=== PATIENT | male | born 2000 | race Hispanic/Latino ===

== ENCOUNTER 2020-06-12 05:24 | Emergency (ER) | payer MEDICAID, OTHER | END 2020-06-12 07:00 | LOC: EDH 05:24 | DX: B34.9 Viral infection, unspecified (principal); Z20.822 Contact with and (suspected) exposure to COVID-19; Z72.0 Tobacco use | CPT/HCPCS: 87426; 87804 ×2; 87880; 93005; 99284; U0003 ==

== ENCOUNTER 2021-11-15 17:47 | Emergency (ER) | payer OTHER ==
[~2021-11-15] VITALS: Ht 162.6 cm; Wt 81.6 kg
[2021-11-15 17:49] VITALS: BP 143/55
[2021-11-15] MEDS ORDERED: KETOROLAC 30MG VIAL (30MG/ML) IVP ONE (18:00)
[2021-11-15] MEDS ORDERED: ONDANSETRON 4MG INJ IVP ONE (18:00)
[2021-11-15 18:20] LABS: APPEARANCE,URINE Clear (CLEAR); BILIRUBIN,URINE Negative (NEGATIVE); COLOR,URINE Yellow (YELLOW); GLUCOSE, URINE (UA) Negative (NEGATIVE); KETONES,URINE Negative (NEGATIVE); LEUKOCYTE ESTERASE ,URINE Negative (NEGATIVE); NITRATE,URINE Negative (NEGATIVE); OCCULT BLOOD,URINE Negative (NEGATIVE); PH,URINE 5.5 (5.0-8.0); PROTEIN,URINE Negative (NEGATIVE); UROBILINOGEN,URINE 0.2 mg/dL (0.2-1.0)
[2021-11-15 18:38] LABS: BASOPHILS % (AUTO) 0.2 % (0.0-5.0); EOSINOPHILS % (AUTO) 0.9 % (0.0-8.0); HEMATOCRIT 41.3 % (42-54); MEAN CORPUSCULAR HEMOGLOBIN 29.5 pg (27.0-33.0); MEAN CORPUSCULAR HGB CONC 34.4 g/dL (32.0-36.0); MEAN CORPUSCULAR VOLUME 85.9 fL (80-100); MONOCYTES % (AUTO) 7.4 % (3.0-13.0); NEUTROPHILS % (AUTO) 86.8 % (40.0-77.0); PLATELET COUNT (AUTO) 177 K/uL (130-400); RED BLOOD CELL COUNT(AUTO) 4.81 MIL/uL (4.50-6.20); RED CELL DISTRIBUTION WIDTH 12.1 % (11.0-15.5); WHITE BLOOD COUNT (AUTO) 8.2 K/uL (4.8-10.8)
[2021-11-15 18:55] LABS: ALANINE AMINOTRANSFERASE 33 U/L (12-78); ALBUMIN 4.5 g/dL (3.5-5.0); ASPARTATE AMINOTRANSFERASE 19 U/L (10-37); CARBON DIOXIDE 28 mmol/L (21-32); CHLORIDE 99 mmol/L (101-111); CREATININE 0.9 mg/dL (0.5-1.5); GLOMERULAR FILTR. RATE CALC 113 mL/min (>60); GLUCOSE,RANDOM 104 mg/dL (70-105); POTASSIUM 3.9 mmol/L (3.5-5.1); SODIUM SERUM 137 mmol/L (136-145); TOTAL PROTEIN, SERUM 7.8 g/dL (6.0-8.3); UREA NITROGEN, BLOOD 13 mg/dL (7-18)
[2021-11-15 19:11] LABS: CRP QUANTITATIVE < 2.00 mg/L (0.00-9.0)
[2021-11-15] MEDS ORDERED: IBUP-2070 PO (19:14)
== END 2021-11-15 19:34 | disposition home or self-care (01) ==
LOC: EDH 17:47
DX: K40.90 Unilateral inguinal hernia, without obstruction or gangrene, not specified as recurrent (principal)
CPT/HCPCS: 99284; 74176; 96374; 96375; 80053; 85025; 87797; 87486; 86140; 81003; 36415; J2405; J1885

== ENCOUNTER 2023-07-16 18:53 | Emergency (ER) | payer OTHER ==
[~2023-07-16] VITALS: Ht 172.7 cm; Wt 77.1 kg
[~2023-07-16 18:53] MED LIST: IBUP-2070 PO
[2023-07-16 18:57] VITALS: BP 150/84; PULSE 80; RESP 16
[2023-07-16 19:25] LABS: BASOPHILS # (AUTO) 0.04 K/uL (0.00-0.20); BASOPHILS % (AUTO) 0.5 % (0.0-5.0); EOSINOPHILS # (AUTO) 0.29 K/uL (0.00-0.70); EOSINOPHILS % (AUTO) 3.7 % (0.0-8.0); HEMATOCRIT 45.8 % (42-54); IMMATURE GRANULOCYTE ABSOLUTE 0.02 K/uL (0-1); LYMPHOCYTES % (AUTO) 26.3 % (21.0-51.0); MEAN CORPUSCULAR HGB CONC 33.6 g/dL (32.0-36.0); MEAN CORPUSCULAR VOLUME 89.3 fL (79-99); MONOCYTES # (AUTO) 0.6 K/uL (0.1-1.0); MONOCYTES % (AUTO) 7.5 % (3.0-13.0); NEUTROPHILS # (AUTO) 4.8 K/uL (1.8-7.7); NEUTROPHILS % (AUTO) 61.7 % (40.0-77.0); PLATELET COUNT (AUTO) 232 K/uL (130-400); RED BLOOD CELL COUNT(AUTO) 5.13 MIL/uL (4.50-6.20); RED CELL DISTRIBUTION WIDTH 12.5 % (11.0-15.5); WHITE BLOOD COUNT (AUTO) 7.8 K/uL (4.8-10.8)
[2023-07-16 19:29] LABS: APPEARANCE,URINE CLEAR (CLEAR); BILIRUBIN,URINE NEGATIVE (NEGATIVE); COLOR,URINE LIGHT-YELLOW (YELLOW); GLUCOSE, URINE (UA) NEGATIVE (NEGATIVE); KETONES,URINE NEGATIVE (NEGATIVE); LEUKOCYTE ESTERASE ,URINE NEGATIVE Leu/uL (NEGATIVE); NITRATE,URINE NEGATIVE (NEGATIVE); OCCULT BLOOD,URINE NEGATIVE (NEGATIVE); PROTEIN,URINE NEGATIVE (NEGATIVE); UROBILINOGEN,URINE 0.2 mg/dL (0.2-1.0)
[2023-07-16] MEDS: ONDANSETRON ODT 4MG TAB SL ONE (19:29)
[2023-07-16] MEDS: ONDANSETRON ODT 4MG TAB ONE (19:29)
[2023-07-16 19:32] LABS: ADD UA MICROSCOPIC YES
[2023-07-16 19:34] LABS: MUCUS,URINE RARE LPF (None Seen); WBC,URINE 0-1 /HPF (0-1); YEAST,URINE BUDDING RARE /HPF (None Seen)
[2023-07-16 19:36] LABS: POTASSIUM 4.1 mmol/L (3.5-5.1)
[2023-07-16 19:47] LABS: BILIRUBIN,TOTAL 0.3 mg/dL (0.2-1.0); TOTAL PROTEIN, SERUM 7.5 g/dL (6.0-8.3)
[2023-07-16 20:41] LABS: INFLUENZA TYPE A Negative For Type A (NEGATIVE); INFLUENZA TYPE B Negative For Type B (NEGATIVE)
[2023-07-16 20:46] LABS: COVID19 (SARS ANTIGEN RAPID) PRESUMPTIVE NEGATIVE (NEGATIVE)
[2023-07-16] MEDS ORDERED: BISA-151 PO (22:24)
[2023-07-16] MEDS ORDERED: DOCU-116 PO (22:24)
== END 2023-07-16 22:27 | disposition home or self-care (01) ==
LOC: EDH 18:53
DX: K59.00 Constipation, unspecified (principal); J06.9 Acute upper respiratory infection, unspecified; R10.32 Left lower quadrant pain; F17.200 Nicotine dependence, unspecified, uncomplicated; Z20.822 Contact with and (suspected) exposure to COVID-19; Z98.890 Other specified postprocedural states
CPT/HCPCS: 36415; 74018; 80053; 81001; 83690; 85025; 87426; 87804; 87880

== ENCOUNTER 2024-11-23 09:25 | Emergency (ER) | payer BC ==
[~2024-11-23] VITALS: Ht 172.7 cm; Wt 77.1 kg
[~2024-11-23 09:25] MED LIST changes: +BISA-151 PO; +DOCU-116 PO
--- NOTE | 2024-11-23 10:19 | ERN ---
ED Note History of Present Illness Stated Complaint: URINARY FREQUENCY Chief Complaint: Painful Urination Time Seen by MD: 09:57 Dictation: PATIENT IS A 24-YEAR-OLD MALE STATES HE JUST GOT OUT OF THE [facility] AND HIS HAVING ERYTHEMA REDNESS ITCHING TO THE END OF HIS PENIS AND IS UNCIRCUMCISED. HE STATES ALSO WHEN HE URINATES IT [place]. HE STATES BEFORE I WENT TO THE [facility] I WAS CHECKED BUT I DID NOT GET THE RESULTS. STATES HE HAS NOT HAD SEX SINCE BEING IN THE [facility] FOR SIX MONTHS JUST GOT OUT. NO PRIMARY CARE DOCTOR Allergies: Coded Allergies: No Known Allergies (Unverified Allergy, Unknown, 11/15/21) Home Meds Active Scripts Azithromycin (Zithromax Tri-Jim) 500 Mg Tablet, 1000 MG PO ONCE, #2 TAB TAKE TWO TABLETS BY MOUTH X1 DOSE WITH FOOD. Prov:HUMA MARCOS NP 11/23/24 Doxycycline Hyclate (Doxycycline Hyclate) 100 Mg Capsule, 1 CAP PO BID for 10 Days, #20 CAP 0 Refills Prov:HUMA MARCOS NP 11/23/24 Clotrimazole (Clotrimazole) 1 % Cream..g., 1 APPL TP TID for 7 Days, #45 GM 0 Refills apply to affected area(s) Prov:HUMA MARCOS NP 11/23/24 Docusate Sodium (Colace) 100 Mg Capsule, 100 MG PO BID, #30 CAP Prov:SAFIA LOVE Jr. 07/16/23 Bisacodyl (Bisacodyl) 5 Mg Tablet.dr, 5 MG PO DAILY, #30 TAB Prov:SAFIA LOVE Jr. 07/16/23 Ibuprofen (Ibuprofen) 600 Mg Tablet, 600 MG PO TID PRN for PAIN, #45 TAB Prov:KEVIN STRICKLAND 11/15/21 Past Medical History Past Medical History: No Pertinent History Additional Past Medical Hx: occasional constipation Surgical History: None Family History: Negative Social History: Smokers, ETOH, Negative RN Note Reviewed/Agreed w/PFSH: Yes Review of System Dictation CONSTITUTIONAL: NEGATIVE EXCEPT FOR HPI HEAD/FACE: NEGATIVE EXCEPT FOR HPI EENT: NEGATIVE EXCEPT FOR HPI RESPIRATORY: NEGATIVE EXCEPT FOR HPI GASTROINTESTINAL/ABDOMINAL: NEGATIVE EXCEPT FOR HPI GENITOURINARY: NEGATIVE EXCEPT FOR HPI BURNING AND ITCHING TO GLANS PENIS DYSURIA MUSCULOSKELETAL: NEGATIVE EXCEPT FOR HPI INTEGUMENTARY: NEGATIVE EXCEPT FOR HPI NEUROLOGICAL/PSYCH: NEGATIVE EXCEPT FOR HPI HEMATOLOGIC/LYMPHATIC: NEGATIVE EXCEPT FOR HPI ALL SYSTEMS NEGATIVE, EXCEPT NOTED ABOVE. 13 POINT REVIEW OF SYSTEMS ASSESSED AND ALL NEGATIVE EXCEPT FOR ABOVE. Initial Vital Sign VS Vital Signs Date Time Temp Pulse Resp B/P (MAP) Pulse Ox O2 Delivery O2 Flow Rate FiO2 11/23/24 09:29 97.3 65 16 113/80 98 Room Air 0 11/23/24 09:32 21 Physical Exam Dictation VITAL SIGNS REVIEWED GENERAL APPEARANCE: ALERT, ORIENTED X 3, NO ACUTE DISTRESS, WELL DEVELOPED, NOURISHED. HEAD AND FACE: NON-TRAUMATIC. EYES: PERRL, PINK CONJUNCTIVAS, EYELID NO TRAUMA, ANTERIOR CHAMBER WITH ARCUS SENILIS. EARS: PINNAS INTACT AND NO SIGNS OF TRAUMA OR ERYTHEMA EAR CANALS CLEAR AND NO DISCHARGE TM NO ERYTHEMA NOSE: NO DISCHARGE, NO BLEEDING. OROPHARYNX: MOUTH NORMAL, TONGUE PINK, PHARYNX CLEAR,NO ERYTHEMA, TONSILS NO EXUDATES, NO ABSCESSES NOTED, MUCOUS MEMBRANE MOIST NECK: SUPPLE, NON-TENDER, NO THYROMEGALY, NO MASSES, NO JVD, NO BRUITS BREAST:DEFERRED CHEST:NO TENDERNESS, NO CREPITUS, NO PARADOXICAL MOVEMENT, NO RETRACTIONS LUNGS:CLEAR, WELL-VENTILATED, SYMMETRIC, NO RALES, NO WHEEZING, NO RHONCHI, NO STRIDOR, GOOD BREATH SOUNDS BILATERALLY HEART: REGULAR RATE, REGULAR RHYTHM, NO MURMUR, NO GALLOPS VASCULAR: NO PERIPHERAL EDEMA, ABDOMEN: SOFT, POSITIVE BOWEL SOUNDS, NONDISTENDED, NO GUARDING, NONTENDER, NO REBOUND, NO MASSES NO HEPATOMEGALY, NO SPLENOMEGALY, NO REESE'S SIGN, NO HERNIAS. RECTAL: DEFERRED GENITAL: PATIENT IS UNCIRCUMCISED BILATERAL TESTICLES ARE DESCENDED. MILD ERYTHEMA WITH SKIN IS RETRACTED. NO DISCHARGE NO LESIONS TO SKIN NEUROLOGICAL: NORMAL SPEECH, MOTOR FUNCTION INTACT, SENSORY FUNCTION INTACT MUSCULOSKELETAL: NECK NONTENDER, FULL RANGE OF MOTION, BACK NONTENDER, FULL RANGE OF MOTION, EXTREMITIES: NONTENDER, FULL RANGE OF MOTION SKIN: COLOR PINK, DRY, NO TURGOR, NO RASH, NO LACERATIONS, NO ABRASIONS, NO CONTUSIONS. LYMPHATIC: DEFERRED Results (Laboratory/Radiology) Laboratory/Radiology Laboratory Tests Test 11/23/24 09:42 Urine Color LIGHT-YELLOW (YELLOW) Urine Appearance CLEAR (CLEAR) Urine pH 5.5 (5.0-8.0) Urine Specific [place] 1.019 (1.001-1.031) Urine Protein NEGATIVE mg/dL (NEGATIVE) Urine Glucose (UA) NEGATIVE mg/dL (NEGATIVE) Urine Ketones NEGATIVE mg/dL (NEGATIVE) Urine Occult Blood NEGATIVE (NEGATIVE) Urine Nitrate NEGATIVE (NEGATIVE) Urine Bilirubin NEGATIVE mg/dL (NEGATIVE) Urine Urobilinogen 0.2 mg/dL (0.2-1.0) Urine Leukocyte Esterase NEGATIVE Alexa/uL Labs Reviewed?: Yes ED Course ED Course Orders Procedure Category Date Status Time Urinalysis Profile LAB 11/23/24 Complete 09:52 Chlamydia & Gc Pcr IVON 11/23/24 In Process 10:17 Vital Signs Date Time Temp Pulse Resp B/P (MAP) Pulse Ox O2 Delivery O2 Flow Rate FiO2 11/23/24 10:30 97.3 60 16 115/76 98 Room Air* 0 11/23/24 09:32 97.3 65 16 113/80 98 Room Air* 0 21 11/23/24 09:29 97.3 65 16 113/80 98 Room Air 0 1100/PATIENT WILL BE DISCHARGED HOME WITH CLOTRIMAZOLE FOR FUNGAL INFECTION, WE WILL TREAT PATIENT EMPIRICALLY WITHOUT RESULTS OF GC CHLAMYDIA FOR CHLAMYDIA AND GONORRHEA. Medical Decision Making MDM MEDICAL DECISION-MAKING BASED ON ASSESSMENT PHYSICALL URINE FOR GC CHLAMYDIA WAS SENT AND URINALYSIS. URINALYSIS NEGATIVE PATIENT WILL BE DISCHARGED HOME WITH AZITHROMYCIN AND DOXYCYCLINE ALSO CLOTRIMAZOLE AND TOLD NO SEX UNTIL CLEARED BY PLANNED PARENTHOOD. DX & DISP Disposition: Discharge Departure Impression: Primary Impression: Possible exposure to STD Additional Impression: Candidal balanitis Condition: Stable Scripts Azithromycin (Zithromax Tri-Jim) 500 Mg Tablet 1000 MG PO ONCE, #2 TAB TAKE TWO TABLETS BY MOUTH X1 DOSE WITH FOOD. Prov: HUMA MARCOS NP 11/23/24 Doxycycline Hyclate (Doxycycline Hyclate) 100 Mg Capsule 1 CAP PO BID for 10 Days, #20 CAP 0 Refills Prov: HUMA MARCOS NP 11/23/24 Clotrimazole (Clotrimazole) 1 % Cream..g. 1 APPL TP TID for 7 Days, #45 GM 0 Refills apply to affected area(s) Prov: HUMA MARCOS NP 11/23/24 Additional Instructions: FOLLOW-UP WITH PRIMARY CARE PROVIDER IN 1 TO 2 DAYS. TAKE MEDICATIONS DIRECTED HERE IN THE EMERGENCY ROOM. OKAY TO CONTINUE HOME MEDICATIONS UNLESS OTHERWISE DISCUSSED DURING YOUR VISIT IN THE EMERGENCY ROOM TODAY. RETURN TO YOUR NEAREST EMERGENCY ROOM IF SYMPTOMS WORSEN OR IF THERE IS NO IMPROVEMENT. CALL 911 IF YOU NEED IMMEDIATE ASSISTANCE. TAKE TYLENOL OR MOTRIN [id number] NEEDED AND IF NO CONTRAINDICATIONS ARE PRESENT. INCREASE ORAL HYDRATION. A WOUND CULTURE OR URINE CULTURE WAS ORDERED HERE IN THE EMERGENCY ROOM DEPARTMENT PLEASE FOLLOW-UP WITH PRIMARY CARE PROVIDER AND ADVISE THEM TO GET REPEAT PORTS FROM OUR FACILITY. IF YOU HAD ANY KATINA WRAP/SPLINTS THAT WERE APPLIED HERE, PLEASE DO NOT REMOVE THEM UNTIL YOU SEE YOUR PRIMARY CARE OR SPECIALTY. TAKE ANTIBIOTICS DIRECTED UNTIL GONE. NO SEX OF ANY KIND UNTIL CLEARED BY YOUR PRIMARY CARE DOCTOR OR PLANNED PARENTHOOD. WASH HER PENIS WELL WITH SOAP AND WATER RETRACT SKIN AND APPLY ANTIFUNGAL OINTMENT3 TIMES A DAY FOR SEVEN DAYS AND THEN REAPPLY SKIN OVER THE HEAD OF YOUR PENIS. Referrals: SELF,REFERRAL (PCP) Time of Disposition: 11:05 I have reviewed the case, and I agree with, Diagnosis and Plan HUMA MARCOS NP Nov 23, 2024 10:19 MYNOR CHENG DO Nov 23, 2024 14:26
[2024-11-23 10:20] LABS: APPEARANCE,URINE CLEAR (CLEAR); GLUCOSE, URINE (UA) NEGATIVE (NEGATIVE); LEUKOCYTE ESTERASE ,URINE NEGATIVE Leu/uL (NEGATIVE); NITRATE,URINE NEGATIVE (NEGATIVE); OCCULT BLOOD,URINE NEGATIVE (NEGATIVE)
[2024-11-23 10:22] LABS: ADD UA MICROSCOPIC NO
[2024-11-23 10:30] VITALS: BP 115/76; PULSE 60; RESP 16; TEMP 97.3; O2SAT 98
[2024-11-23] MEDS ORDERED: DOXY100C5 PO (11:07)
[2024-11-23] MEDS ORDERED: AZIT500T2 PO (11:07)
[2024-11-23] MEDS ORDERED: CLOT15CR23 TP (11:07)
== END 2024-11-23 11:21 | disposition home or self-care (01) ==
LOC: EDH 09:25
DX: B37.42 Candidal balanitis (principal); F17.200 Nicotine dependence, unspecified, uncomplicated; Z79.899 Other long term (current) drug therapy; Z20.2 Contact with and (suspected) exposure to infections with a predominantly sexual mode of transmission
CPT/HCPCS: 81003; 87491; 87591; 99283